=== PATIENT | male | born 1980 ===

== ENCOUNTER 2017-05-01 21:31 | Inpatient (IN) ==
[2017-05-01] MEDS ORDERED: metroNIDAZOLE INJ 500 MG in PREMIX 1 EACH IV STA (23:27)
[2017-05-01] MEDS ORDERED: SODIUM CHLORIDE 0.9% 1,000 ML IV STA (23:27)
[2017-05-01] MEDS ORDERED: PANTOPRAZOLE 40 MG VIAL IV STA (23:27)
[2017-05-01] MEDS ORDERED: VANCOMYCIN INJ 1,000 MG in SODIUM CHLORIDE 0.9% 250 ML IV STA (23:27)
[2017-05-01] MEDS ORDERED: ONDANSETRON 4 MG/2 ML VIAL IV STA (23:27)
[2017-05-01] MEDS ORDERED: HYDROmorphone 2 MG/1 ML VIAL IV STA (23:27)
[2017-05-01 23:35] LABS: Basophils # 0.1 10*3/uL (0.0-0.2); Basophils % 0.3 % (0.0-0.8); Hematocrit 40.8 VOL% (42.0-52.0); Hemoglobin 14.2 GM/DL (14.0-18.0); Immature Granulocytes % 0.5 %; Immature Granulocytes Absolute 0.12 #; Lymphocytes # 3.4 10*3/uL (1.4-4.0); Lymphocytes % 15.4 % (21.2-54.2); Mean Corpuscular HGB Conc 34.8 GM/DL (32-36); Mean Corpuscular Hemoglobin 30 PG (27-34); Mean Corpuscular Volume 85.4 FL (87-102); Mean Platelet Volume 11.1 FL (9.6-12.0); Monocytes # 1.9 10*3/uL (0.11-0.8); Monocytes % 8.7 % (1.7-12.7); Neutrophils # 16.6 10*3/uL (1.4-7.4); Neutrophils % 75.1 % (38.7-73.9); Platelet Count 292 T/CUMM (130-400); Red Blood Count 4.78 MC/CUMM (3.8-5.5); Red Cell Distribution Width 12.8 % (9.3-17.3); White Blood Count 22.1 T/CUMM (4-12)
[2017-05-01] MEDS ORDERED: methylPREDNISolone SOD SUC 125 MG/2 ML VIAL IV STA (23:36)
--- NOTE | 2017-05-01 23:49 | Emergency Department Note ---
Jarrett Peck Rolonda, am scribing for, and in the presence of, Kenneth Woods MD 23:34. Chuck Peck Charles R, MD, personally performed the services described in this documentation, ascribed by Vincent Farias in my presence, and it is both accurate and complete 349 . Arrival - Arrival Chief Complaint: GI Bleed/Rectal Stated Complaint: bad cramps ED Nursing Triage Note: C/O possible abscess or ulcer to rectum since last Friday/ after doing colon prep for c-scope. Pt reports that he has had some rectal bleeding too, but mostly just discharge. Pt reports using hemorrhoid cream without any relief. Mode of Arrival: Ambulatory Limitations: No Limitations Source: Patient, Old Records Reviewed, RN Notes Reviewed Time Seen by Provider: 05/01/17 22:55 - History of Present Illness HPI Narrative: Pt is a 36 y/o male who presents to the ED with c/o rectal bleeding with an onset of x1 week. Pt has PMHx of Crohn's disease. He states that he was a colonoscopy scheduled last week by Dr. Piper at [place] but did not have the procedure done due to because of the rectal pain. He states that he has been straining during BM and that he has hematochezia. He denied PMHx of hemorrhoids but confirms fever. Pt had a fever of 100.1 during time of triage. No other complaint/pain in ED. Onset (ago): week(s) Consistency: constant Severity: mild, moderate Severity scale (1-10): 5 Allergies/Adverse Reactions: Allergies Allergy/AdvReac Type Severity Reaction Status Date / Time Penicillins Allergy Intermediate RASH Verified 05/01/17 21:42 Review of System - Review of System 12 point system: reviewed and no additional remarkable complaints except as stated - Review of System Constitutional: Present: fever. Absent: chills Eyes: Absent: discharge Head/Ears/Nose/Throat: Absent: earache Respiratory: Absent: cough Cardiovascular: Absent: chest pain Gastrointestinal: Present: hematochezia. Absent: abdominal pain Genitourinary male: Present: other (rectal pain). Absent: dysuria Musculoskeletal: Absent: arm pain Skin: Absent: rash Neurological: Absent: headache Psychiatric: Absent: anxiety Endocrine: Absent: cold intolerance Hematological/Lymphatic: Absent: easy bleeding Allergic/Immunologic: Absent: facial swelling Medical,Surgical,& Family Hx - Medical History Gastrointestinal: History of: Crohn's Disease - Social History Smoking Status: Never smoker Frequency of Alcohol Use: None Type of Drug Use: None Exam Vital Signs: Vital Signs Temperature 100.1 F H 05/01/17 21:43 Pulse Rate 118 H 05/01/17 21:43 Respiratory Rate 18 05/01/17 21:43 Blood Pressure 137/93 05/01/17 21:43 O2 Sat by Pulse Oximetry 96 05/01/17 21:43 - General General appearance: alert, in no apparent distress - Head Head exam: Present: atraumatic, normocephalic - Eye Eye exam: Present: PERRL, EOMI - ENT ENT exam: Present: mucous membranes moist. Absent: mucous membranes dry - Neck Neck exam: Present: full ROM. Absent: tenderness - Chest Chest inspection: Present: symmetric chest wall rise. Absent: tenderness - Respiratory Respiratory exam: Present: normal lung sounds bilaterally. Absent: wheezes - Cardiovascular Cardiovascular exam: Present: normal rhythm, tachycardia - Abdominal Exam Abdominal exam: Present: soft, normal bowel sounds. Absent: tenderness - Rectal Exam Rectal exam: Present: heme (-) stool, hemorrhoids, other (perirectal pain). Absent: normal inspection - Extremities Exam Extremities exam: Present: full ROM. Absent: tenderness - Back Exam Back exam: Present: full ROM. Absent: tenderness - Neurological Exam Neurological exam: Present: alert, oriented X3, CN II-XII intact - Psychiatric Psychiatric exam: Present: normal affect, normal mood - Skin Skin exam: Present: warm, dry, intact, normal color. Absent: rash Course - Consultations Consultation #1: Spoke to Dr. Leung. He said to admit patient to medicine consult GI no need for any intervention because of Crohn's flareup possibility of perforated inflamed tissue in the rectum consult as needed. Time: 00:20 Consultation #2: Hospitalist will admit patient Time: 00:20 Results - Labs CBC & BMP: 05/01/17 23:05 05/01/17 23:05 Lab Results: I have reviewed the patients labs Labs: Laboratory Tests 05/01/17 23:05 WBC 22.1 H RBC 4.78 Hgb 14.2 Hct 40.8 L MCV 85.4 L Neut % (Auto) 75.1 H Lymph % (Auto) 15.4 L Neut # (Auto) 16.6 H Jessamine # (Auto) 1.9 H Laboratory Tests 05/01/17 23:05 Platelet Estimate Normal Anisocytosis Laboratory Tests 05/01/17 23:05 Sodium 132 L Potassium 4.0 Chloride 98 Carbon Dioxide 26 BUN 10 GFR Calculation 125 Glucose 93 Calculated Osmolality 262.5 L Alkaline Phosphatase 134 H Albumin 3.2 L Globulin 3.8 H Albumin/Globulin Ratio 0.8 L Amylase 14 L Disposition Clinical Impression: Hemorrhoids, Crohn's disease flareup, Fever, Leukocytosis, Rectal pain, Proctitis, Early perirectal abscess Case discussed with: patient Disposition: Still a Patient Condition: Stable Time of Disposition: 00:22
[2017-05-01] MEDS ORDERED: VANCOMYCIN 1,000 MG VIAL ONE (23:52)
[2017-05-01] MEDS ORDERED: PANTOPRAZOLE 40 MG VIAL IV ONE (23:52)
[2017-05-01] MEDS ORDERED: HYDROmorphone 2 MG/1 ML VIAL ONE (23:53)
[2017-05-01] MEDS ORDERED: ONDANSETRON 4 MG/2 ML VIAL ONE (23:53)
[2017-05-01] MEDS ORDERED: methylPREDNISolone SOD SUC 125 MG/2 ML VIAL ONE (23:53)
[2017-05-01] MEDS ORDERED: metroNIDAZOLE 500 MG/100 ML PREMIX IV ONE (23:53)
--- NOTE | 2017-05-01 23:57 | DUMMY REPORT TO COMPLETE ORDER ---
See report scanned to EMR
[2017-05-01 23:58] LABS: Platelet Estimate Normal
[2017-05-02 00:09] LABS: Albumin 3.2 G/DL (3.4-5.0); Bilirubin,Total 0.6 MG/DL (0.2-1.0); Calcium 8.8 MG/DL (8.5-10.1); Lactic Acid 0.7 MMOL/L (0.4-2.0); Magnesium 1.8 MG/DL (1.8-2.4); Osmolality,Calculated 262.5 MOS/KG (273-304)
[2017-05-02] MEDS ORDERED: ACETAMINOPHEN 500 MG TABLET PO STA (00:26)
[2017-05-02] MEDS ORDERED: PRAMOXINE/HYDROCORTISONE RECTAL FOAM 10 GM CAN RECTAL STA (00:27)
[2017-05-02] MEDS ORDERED: ACETAMINOPHEN 500 MG TABLET ONE (00:59)
--- NOTE | 2017-05-02 01:13 | Hospitalist History & Physical ---
History of Present Illness Chief complaint: rectal pain and fevers History of present illness: Mr. Lieberman is a 36 year old PMH of Crohn's disease, anxiety, and HTN who presents with 7 days of rectal pain, increasing episodes of bloody diarrhea, fevers, and chills. He states that these symptoms started after his colo prep. He is new to the area and has been seeing Dr. Piper of GI. He saw Dr. Piper on and the plan was for a colonoscopy on 04/25. Unfortunately, this was cancelled because of intractable rectal pain. He describes the pain has being constant and sharp. Pain is worst while having bowel movements. He has a history of Crohn's disease and is on humira. He states that the humira controls his symptoms. He has unchanged and chronic lower abdominal pain. He denies any n/v/recent antibiotics. A rectal exam was done by ER physician who noted hemorrhoids and no fluctuant mass. Stool occult was negative. Allergies Allergy/AdvReac Type Severity Reaction Status Date / Time Penicillins Allergy Intermediate RASH Verified 05/01/17 21:42 Medical,Surgical,& Family Hx - Medical History Cardio: History of: Hypertension Psychological: History of: Anxiety Disorders Gastrointestinal: History of: Crohn's Disease - Social History Smoking Status: Current every day smoker (smokes 3ppd x 12 years, now cut down to 3 cigs a day) Frequency of Alcohol Use: None Type of Drug Use: None - Constitutional Constitutional: Present: chills, fever(s). Absent: weight loss - EENT Nose, mouth and throat: Absent: dysphagia, sore throat - Cardiovascular Cardiovascular: Absent: chest pain at rest, chest pain with activity, lightheadedness, palpitations - Respiratory Respiratory: Absent: cough, dyspnea on exertion - Gastrointestinal Gastrointestinal: Present: abdominal pain, hematochezia, loose stools. Absent: melena, nausea, vomiting - Genitourinary Genitourinary: Absent: hematuria - Psychiatric Psychiatric: Present: anxiety Exam - Constitutional Vitals: Period Temp Pulse Resp BP Sys/Panda Pulse Ox Last 24 Hr 100.1 F 118 18 137/93 96 General appearance: normal weight, mild distress, over weight - Head Head exam: Present: normal inspection, normocephalic - Eye Eye exam: Absent: conjunctival injection, scleral icterus Pupils: Present: VALENTE - Respiratory Respiratory exam: Present: clear to auscultation bilaterally. Absent: rales, rhonchi, wheezes - Cardiovascular Cardiovascular exam: Present: regular rate and rhythm, tachycardia (regular rhythm). Absent: systolic murmur - GI/Abdominal GI/Abdominal exam: Present: normal bowel sounds, tenderness, soft, other ( rectal exam deferred since ER staff had done one; perirectal area noted for erythema). Absent: guarding, rebound - Extremities Exam Extremities exam: Absent: edema - Neurological Exam Neurological exam: Present: alert, oriented X3 - Psychiatric Psychiatric exam: Present: normal affect, normal mood - Skin Skin exam: Present: normal color, warm Results - Labs CBC & BMP: 05/01/17 23:05 05/01/17 23:05 - EKG EKG results: sinus rhythm - Impressions Patient is a 36 yo male with a history of Crohn's disease who presents here with fevers, bloody stools, and rectal pain. Active Issues: 1. Crohn's disease with acute exacerbation, suspect proctitis 2. Sepsis, likely 2nd to colitis 3. Tobacco use, counselled on ill health effects of smoking and encouraged smoking cessation. He states that he is nearly quit and will quit on his own. Counselling time: 10 minutes 4. Comorbid conditions: history of anxiety, HTN Plan: admit; await results of cultures/IVFs/cipro, flagyl/parenteral steroids and 5-asa suppository/PPI/pain control/CTAP/monitor wbc; control fevers/consult GI. Unable to reconcile medications. Will do some when information becomes available. PPI/DVT prophalaxis (SCDs) The plan of care may be modified as more information becomes available. CODE: FULL - Diagnostic Findings Procedure: Chest x-ray: image reviewed by me (no acute findings)
[2017-05-02] MEDS ORDERED: ACETAMINOPHEN 325 MG TABLET PO PRN (01:32)
[2017-05-02] MEDS ORDERED: MESALAMINE 1000 MG SUPP RECTAL STA (01:37)
[2017-05-02 02:02] LABS: Apearance,Urine CLEAR (Clear); Bilirubin,Urine Negative (Negative); Blood, Urine Small mg/dL (Negative); Glucose,Urine (UA) Negative (Negative); Ketones,Urine Negative (Negative); Mucus,Urine Occasional /LPF (Occasional); Nitrite,Urine Negative (Negative); Protein,Urine Negative; RBC,Urine <1 /HPF (0-4); Urine Color Yellow (Yellow); Urine Specific Gravity 1.004 (1.001-1.035); Urine Urobilinogen < 2.0 EU/DL (0.2-1.0)
[2017-05-02] MEDS: SODIUM CHLORIDE 0.9% 1,000 ML IV SCH ×2 (02:33→16:21)
[2017-05-02] MEDS: CIPROFLOXACIN INJ 400 MG in PREMIX 1 EACH IV SCH ×2 (04:56→15:55)
[2017-05-02 05:07] LABS: Basophils % 0.2 % (0.0-0.8); Hematocrit 41.4 VOL% (42.0-52.0); Hemoglobin 13.8 GM/DL (14.0-18.0); Immature Granulocytes % 0.8 %; Immature Granulocytes Absolute 0.13 #; Lymphocytes # 1.1 10*3/uL (1.4-4.0); Lymphocytes % 6.4 % (21.2-54.2); Mean Corpuscular HGB Conc 33.3 GM/DL (32-36); Mean Corpuscular Hemoglobin 29 PG (27-34); Mean Corpuscular Volume 87.9 FL (87-102); Mean Platelet Volume 10.9 FL (9.6-12.0); Monocytes # 0.3 10*3/uL (0.11-0.8); Monocytes % 1.8 % (1.7-12.7); Neutrophils % 90.8 % (38.7-73.9); Platelet Count 296 T/CUMM (130-400); Red Blood Count 4.71 MC/CUMM (3.8-5.5); Red Cell Distribution Width 12.9 % (9.3-17.3); White Blood Count 16.5 T/CUMM (4-12)
[2017-05-02 05:46] LABS: Calcium 8.6 MG/DL (8.5-10.1); Magnesium 2.1 MG/DL (1.8-2.4); Osmolality,Calculated 270.1 MOS/KG (273-304); Potassium 4.5 MMOL/L (3.5-5.1)
[2017-05-02 06:02] LABS: Band Neutrophils 1 % (0-10); Giant Platelets Few; Hypochromasia 1+; Lymphocytes 6 % (20-55); Microcytosis Slight; Platelet Estimate Adequate; Segmented Neutrophils 91 % (50-85); Total Cells Counted 100
--- NOTE | 2017-05-02 08:01 | CT Report ---
CT abdomen pelvis w con Indication: Rectal pain, history of Crohn's, rule out abscess Comparison: None Technique: Multiple axial tomographic images of the abdomen and pelvis were obtained after the administration of 100 cc Omnipaque 350 intravenous contrast. Findings: Lung bases clear. No worrisome focal hepatic abnormality. The gallbladder is grossly unremarkable. The pancreas is grossly unremarkable. The spleen is grossly unremarkable. The bilateral adrenal glands are grossly unremarkable. The bilateral kidneys are grossly unremarkable. The urinary bladder is incompletely distended. The prostate and seminal vesicles are grossly unremarkable. Mild rectal wall thickening with surrounding stranding suggesting proctitis. There is a 1.5 x 2 cm air/fluid collection near the dorsal aspect of the junction of the distal rectum/anus suspicious for perirectal abscess. Several mildly prominent perirectal lymph nodes are demonstrated measuring up to 8 mm in short axis dimension. There is no evidence of gastrointestinal obstruction or acute appendicitis. Visualized vasculature grossly unremarkable. Visualized osseous and surrounding soft tissue structures demonstrate no acute abnormality. IMPRESSION: Mild rectal wall thickening with surrounding stranding suggesting proctitis. There is a 1.5 x 2 cm air/fluid collection near the dorsal aspect of the junction of the distal rectum/anus suspicious for perirectal abscess. Several mildly prominent perirectal lymph nodes are demonstrated measuring up to 8 mm in short axis dimension. Recommend follow-up to exclude malignancy. Preliminary report was issued by [facility]. The CT exam was performed using one or more of the following dose reduction techniques: Automated exposure control, adjustment of the mA and/or kV according to patient size, or use of iterative reconstruction technique. PROCEDURE INTERPRETED AT [facility] Final Report Signed by: Dr Demarco Sewell
[2017-05-02] MEDS: methylPREDNISolone SOD SUC 125 MG/2 ML VIAL IV SCH ×2 (08:08→17:07)
[2017-05-02] MEDS: PANTOPRAZOLE 40 MG VIAL IV SCH (08:11)
[2017-05-02] MEDS: metroNIDAZOLE INJ 500 MG in PREMIX 1 EACH IV SCH ×2 (08:14→17:10)
--- NOTE | 2017-05-02 08:23 | XRay Report ---
History: Abdominal pain Date: 05/01/2017 Study: Flat and erect abdomen Comparison exam: No previous similar abdominal x-ray available There is no evidence of pneumoperitoneum. There are some small nonspecific air-fluid levels in large and small bowel on the upright view, without evidence of raymond mechanical bowel obstruction. No radiopaque calculi are present. There is no acute osseous abnormality. Impression: Occasional small scattered nonspecific air-fluid levels without raymond obstruction or gross mass lesion. No acute process otherwise PROCEDURE INTERPRETED AT [facility] DEPARTMENT OF RADIOLOGY Final Report Signed by: Dr. Mikayla Wade
--- NOTE | 2017-05-02 08:29 | XRay Report ---
History: Abdominal pain Date: 05/01/2017 Study: Chest x-ray AP portable Comparison exam: No previous The cardiomediastinal silhouette and pulmonary vasculature are unremarkable. The lungs and pleural spaces are clear. The osseous structures are unremarkable. Impression: No acute cardiopulmonary process PROCEDURE INTERPRETED AT [facility] DEPARTMENT OF RADIOLOGY Final Report Signed by: Dr. Mikayla Wade
--- NOTE | 2017-05-02 09:29 | Gastrointestinal Consult Note ---
<Danielle Starkey Chrystal - Last Filed: 05/02/17 09:24> Assessment and Plan (1) Rectal pain Status: Acute Assessment and plan: 05/02-1 week history of rectal pain with 4-5 loose watery stools daily. Associated fever, chills or nausea. History of Crohn's disease diagnosed in April. Currently on Humira and prednisone. CT findings noted as below. Requesting records from [place] for prior colonoscopies. Continue IV Cipro/ Flagyl. Plan an addendum to followed by Dr. Douglass. Current Visit: Yes History of Present Illness Chief complaint: Rectal pain, fever History of present illness: Mr. Lieberman is a 36 year old male who was admitted to the hospital last night with 1 week history of rectal pain, diarrhea, fever and chills. Patient is a good historian therefore information obtained from patient interview. Patient states that he was diagnosed in April of this past year, in [place], with Crohn's disease. He states at that time he was having some severe abdominal pain and bowel changes and underwent a colonoscopy with his findings. He was placed on Humira as well as prednisone at that time and states since that initial diagnosis he is symptoms have been fairly well controlled. He had a repeat colonoscopy in July in [place] and states everything looked well at that time. He recently moved to this area 2 months ago and was referred to Dr. Piper at [place] to become established as a patient. He was to have a surveillance colonoscopy done last week however he states after completing the prep, he was unable to proceed with colonoscopy last Friday due to increased rectal pain. Patient states since starting the prep week ago, he has had changes in his bowel habits with loose watery stools up to 4 a day without nocturnal defecation or incontinence. He denies any rectal bleeding associated with this. He is also complaining of some lower abdominal pain that is sharp and cramping and states this feels like his initial onset of his Crohn's April. He has been on prednisone off and on since diagnosis when he would have some mild abdominal pain. He denies any weight loss and states he has actually gained weight since diagnosis. Over the last week, he has been running a low-grade fever up to 100 with chills and night sweats. On admission , patient was noted to have WBCs at 22,000. He was also noted to have 100.1 temperature. Rectal exam in the emergency room was noted to show hemorrhoids however negative stools for occult blood. He was also noted to have an elevated CRP at 2.5. CT of abdomen with IV contrast was noted to show rectal wall thickening with 1.5 x 2 cm area/fluid collection near the distal rectum suspicious of perirectal abscess as well as prominent perirectal lymph nodes. Patient states that he has not had any complications with his Crohn's disease since diagnosis. He does state he feels significantly better today however he has received IV hydration as well as IV antibiotics. He has had very minimal to eat or drink since onset a week ago. Home Medications Medication Instructions Recorded Confirmed Type Adalimumab [Humira Pen] 40 mg SUBCUT Q7DAY 05/02/17 05/02/17 History Hydrocodone/Acetaminophen 1 tablet PO BID 05/02/17 05/02/17 History [Hydrocodon-Acetaminoph 7.5-325] Lisinopril [Lisinopril] 10 mg PO BID 05/02/17 05/02/17 History PARoxetine [Paxil] 10 mg PO DAILY 05/02/17 05/02/17 History diazePAM [Diazepam] 5 mg PO BEDTIME PRN 05/02/17 05/02/17 History predniSONE TAB [PredniSONE] 5 mg PO DAILY 05/02/17 05/02/17 History Allergies Allergy/AdvReac Type Severity Reaction Status Date / Time Penicillins Allergy Intermediate RASH Verified 05/01/17 21:42 Medical,Surgical,& Family Hx - Medical History Cardio: History of: Hypertension Psychological: History of: Anxiety Disorders Gastrointestinal: History of: Crohn's Disease - Social History Smoking Status: Current every day smoker Frequency of Alcohol Use: None Type of Drug Use: None 12 point system: reviewed and no additional remarkable complaints except as stated - Constitutional Constitutional: Present: as per HPI, chills, fever(s), weight gain - EENT Eyes: Present: as per HPI Ears: Present: as per HPI Nose, mouth and throat: Present: as per HPI - Cardiovascular Cardiovascular: Present: as per HPI - Respiratory Respiratory: Present: as per HPI - Gastrointestinal Gastrointestinal: Present: as per HPI, abdominal pain, cramping, diarrhea, loose stools, nausea - Genitourinary Genitourinary: Present: as per HPI - Musculoskeletal Musculoskeletal: Present: as per HPI - Neurological Neurological: Present: as per HPI - Psychiatric Psychiatric: Present: as per HPI - Endocrine Endocrine: Present: as per HPI Exam - Constitutional Vitals: Period Temp Pulse Resp BP Sys/Panda Pulse Ox Last 24 Hr 95.1 F-100.2 F 73-118 18-22 111-137/59-93 95-98 General appearance: normal weight, no acute distress - Head Head exam: Present: normal inspection, normocephalic - Eye Eye exam: Present: other (Lids and conjunctive are unremarkable). Absent: scleral icterus - ENT ENT exam: Present: normal exam, normal oropharynx - Neck Neck exam: Present: normal inspection - Respiratory Respiratory exam: Present: clear to auscultation bilaterally. Absent: rales, rhonchi, wheezes - Cardiovascular Cardiovascular exam: Present: regular rate and rhythm. Absent: diastolic murmur , JVD, systolic murmur - GI/Abdominal GI/Abdominal exam: Present: normal bowel sounds, tenderness (Lower abdominal), soft. Absent: ascites, distended, mass, organomegaly - Extremities Exam Extremities exam: Present: normal inspection, full ROM - Back Exam Back exam: Present: normal inspection - Neurological Exam Neurological exam: Present: alert, oriented X3 - Psychiatric Psychiatric exam: Present: normal affect, normal mood - Skin Skin exam: Present: normal color, warm, dry Results - Labs CBC & BMP: 05/02/17 04:54 05/02/17 04:54 Lab Results: I have reviewed the past 24 hour labs - Diagnostic Findings Procedure: CT Abdomen and Pelvis: report reviewed by me Quality Measures - VTE Contraindication to Pharmacological VTE Prophylaxis: High Risk of Bleeding <Juliano Douglass - Last Filed: 05/02/17 16:00> History of Present Illness History of present illness: Mr. Lieberman is a 36 year old male Exam - Constitutional Vitals: Period Temp Pulse Resp BP Sys/Panda Pulse Ox Last 24 Hr 95.1 F-100.2 F 73-118 18-22 110-137/59-93 92-98 Results - Labs CBC & BMP: 05/02/17 04:54 05/02/17 04:54
--- NOTE | 2017-05-02 12:00 | General Surgery Consult Note ---
Assessment and Plan (1) Proctitis Status: Acute Assessment and plan: With small associated rectal abscess. This area is likely very difficult to reach from a surgical standpoint, and it is also a small abscess likely too small for IR access. Fortunately, it is small and the patient's symptoms are significantly improved and leukocytosis is also improving, so this may be able to resolve with antibiotics solely. May consider holding immunomodulators at this point in light of the infection, but would defer to gastroenterology ultimately for that decision. Agree with ciprofloxacin and Flagyl for antimicrobial agents. Thank you for this consultation. We will continue to follow Current Visit: Yes History of Present Illness Chief complaint: rectal pain/bleeding History of present illness: Mr. Lieberman is a 36 year old male with past medical history of Crohn's disease, hypertension, and anxiety currently admitted with rectal pain and bleeding with concern for a rectal abscess. The patient was diagnosed with Crohn's disease April 2016 with symptoms dating back to August 2015 is currently on Humira biweekly injections and as needed prednisone 5 mg therapy with reasonable symptom control; last colonoscopy July 2016. He continues to smoke cigarettes, but he has decreased his use significantly and has no alcohol use. He is currently admitted after 1 week history of worsening rectal pain and pelvic pressure associated with rectal bleeding and low-grade temperature T-max 100.1. He is currently being treated with ciprofloxacin and Flagyl for proctitis and focal abscess identified by CT scan after which reports a significant improvement in his abdominal pain and rectal pain. Home Medications Medication Instructions Recorded Confirmed Type Adalimumab [Humira Pen] 40 mg SUBCUT Q7DAY 05/02/17 05/02/17 History Hydrocodone/Acetaminophen 1 tablet PO BID 05/02/17 05/02/17 History [Hydrocodon-Acetaminoph 7.5-325] Lisinopril [Lisinopril] 10 mg PO BID 05/02/17 05/02/17 History PARoxetine [Paxil] 10 mg PO DAILY 05/02/17 05/02/17 History diazePAM [Diazepam] 5 mg PO BEDTIME PRN 05/02/17 05/02/17 History predniSONE TAB [PredniSONE] 5 mg PO DAILY 05/02/17 05/02/17 History Allergies Allergy/AdvReac Type Severity Reaction Status Date / Time Penicillins Allergy Intermediate RASH Verified 05/01/17 21:42 Medical,Surgical,& Family Hx - Medical History Cardio: History of: Hypertension Psychological: History of: Anxiety Disorders Gastrointestinal: History of: Crohn's Disease - Surgical History Abdominal Surgeries: Surgical HX of: Colonoscopy - Family History Family History: Reports;: Additional Family History Additional Family History: Positive for father with Crohn's disease - Social History Smoking Status: Current every day smoker Frequency of Alcohol Use: None Type of Drug Use: None - Constitutional Constitutional: Present: as per HPI - Gastrointestinal Gastrointestinal: Present: as per HPI, other (Positive tenesmus). Absent: diarrhea, nausea, vomiting Exam - Constitutional Vitals: Period Temp Pulse Resp BP Sys/Panda Pulse Ox Last 24 Hr 95.1 F-100.2 F 73-118 18-22 111-137/59-93 95-98 General appearance: no acute distress - Head Head exam: Present: normocephalic - Eye Eye exam: Absent: scleral icterus - Respiratory Respiratory exam: Present: clear to auscultation bilaterally - Cardiovascular Cardiovascular exam: Present: RRR - GI/Abdominal GI/Abdominal exam: Present: normal bowel sounds, tenderness (Diffuse, mild), soft. Absent: distended, guarding - Neurological Exam Neurological exam: Present: alert, oriented X3 Speech: Present: normal - Skin Skin exam: Present: normal color Quality Measures - VTE Contraindication to Pharmacological VTE Prophylaxis: High Risk of Bleeding Results - Labs CBC & BMP: 05/02/17 04:54 05/02/17 04:54 Lab Results: I have reviewed the past 24 hour labs Labs: Leukocytosis noted to decrease from 22 upon arrival; H&H stable 3: Hyponatremia improving Lactic acid 0.7 Lipase 81 LFTs unremarkable except alkaline phosphatase slightly elevated 134 CRP 2.50 - Diagnostic Findings Procedure: CT Abdomen and Pelvis: image reviewed by me, report reviewed by me ( Inability reviewed; there is a small abscess noted at the cephalad end of the rectum)
[2017-05-02 13:32] LABS: HIV Antigen/Antibody Result Nonreactive (Nonreactive)
[2017-05-03] MEDS: methylPREDNISolone SOD SUC 125 MG/2 ML VIAL IV SCH ×2 (00:11→08:52)
[2017-05-03] MEDS: ONDANSETRON 4 MG/2 ML VIAL IV PRN ×2 (00:14→03:51)
[2017-05-03] MEDS: HYDROmorphone 2 MG/1 ML VIAL IV PRN ×4 (00:18→11:53)
[2017-05-03] MEDS: metroNIDAZOLE INJ 500 MG in PREMIX 1 EACH IV SCH ×2 (00:19→08:44)
[2017-05-03] MEDS: CIPROFLOXACIN INJ 400 MG in PREMIX 1 EACH IV SCH (03:44)
[2017-05-03 05:27] LABS: Basophils # 0.1 10*3/uL (0.0-0.2); Basophils % 0.2 % (0.0-0.8); Hematocrit 38.6 VOL% (42.0-52.0); Hemoglobin 12.9 GM/DL (14.0-18.0); Immature Granulocytes % 1.4 %; Immature Granulocytes Absolute 0.39 #; Lymphocytes # 1.5 10*3/uL (1.4-4.0); Lymphocytes % 5.4 % (21.2-54.2); Mean Corpuscular HGB Conc 33.4 GM/DL (32-36); Mean Corpuscular Hemoglobin 30 PG (27-34); Mean Corpuscular Volume 88.3 FL (87-102); Mean Platelet Volume 11.5 FL (9.6-12.0); Monocytes # 0.7 10*3/uL (0.11-0.8); Monocytes % 2.4 % (1.7-12.7); Neutrophils # 25.6 10*3/uL (1.4-7.4); Neutrophils % 90.6 % (38.7-73.9); Platelet Count 322 T/CUMM (130-400); Red Blood Count 4.37 MC/CUMM (3.8-5.5); Red Cell Distribution Width 13.1 % (9.3-17.3); White Blood Count 28.2 T/CUMM (4-12)
[2017-05-03 05:54] LABS: Calcium 9.1 MG/DL (8.5-10.1); Osmolality,Calculated 280.8 MOS/KG (273-304); Potassium 4.3 MMOL/L (3.5-5.1)
[2017-05-03 06:38] LABS: Band Neutrophils 3 % (0-10); Hypochromasia 2+; Lymphocytes 3 % (20-55); Platelet Estimate Normal; Segmented Neutrophils 92 % (50-85); Total Cells Counted 100
[2017-05-03] MEDS: PANTOPRAZOLE 40 MG VIAL IV SCH (08:50)
--- NOTE | 2017-05-03 10:38 | General Surgery Progress Note ---
Assessment and Plan (1) Perirectal abscess Status: Acute Assessment and plan: This patient has a perirectal abscess but appears to be doing much better today. He is afebrile now. His white blood cell count did go up to 28,000 but he is on high-dose steroids and that could be part of this. I would recommend continuing IV antibiotics and monitoring him for now. If his white blood cell count does not start to improve over the next couple days he will need a repeat CT scan to reevaluate this area. This is probably too high to be accessed transanally for drainage but we could certainly attempt this if it comes to a size where he would need to have it drained but based on the initial CT I am hopeful that antibiotics alone will clear this up. I would not send the patient home and I would recommend stopping his steroids since we are treating an abscess and not a Crohn's flareup right now. Current Visit: Yes Subjective Patient reports: Present: no new complaints, feels better, pain is less, afebrile Exam - Constitutional Vitals: Period Temp Pulse Resp BP Sys/Panda Pulse Ox Last 24 Hr 96.4 F-98.1 F 86-110 18-21 105-137/54-85 91-95 General appearance: no acute distress, over weight - Head Head exam: Present: normal inspection, normocephalic - Eye Eye exam: Present: EOMI Pupils: Present: VALENTE - ENT ENT exam: Present: normal exam Mouth exam: Present: normal external inspection, normal voice - Neck Neck exam: Present: normal inspection, trachea midline - Respiratory Respiratory exam: Present: clear to auscultation bilaterally. Absent: accessory muscle use, chest wall tenderness - Cardiovascular Cardiovascular exam: Present: RRR. Absent: systolic murmur, tachycardia - GI/Abdominal GI/Abdominal exam: Present: normal bowel sounds, soft. Absent: tenderness, rebound - Extremities Exam Extremities exam: Present: normal inspection, normal capillary refill - Back Exam Back exam: Present: normal inspection - Neurological Exam Neurological exam: Present: alert, oriented X3 Speech: Present: normal - Skin Skin exam: Present: normal color, warm Results - Labs CBC & BMP: 05/03/17 04:57 05/03/17 04:57 Quality Measures - VTE Contraindication to Pharmacological VTE Prophylaxis: High Risk of Bleeding
[2017-05-03] MEDS ORDERED: methylPREDNISolone SOD SUC 40 MG/1 ML VIAL IV SCH (11:04)
[2017-05-03] MEDS ORDERED: DIAZEPAM 5 MG TABLET PO PRN (11:24)
[2017-05-03] MEDS ORDERED: LISINOPRIL 10 MG TABLET PO SCH (11:30)
[2017-05-03] MEDS ORDERED: PARoxetine 10 MG TABLET PO SCH (11:30)
[2017-05-03 12:22] VITALS: BP 144/86
--- NOTE | 2017-05-03 13:33 | Discharge Summary ---
Hospital Course - Hospital Course Hospital Course: 36-year-old white male with history of Crohn's disease, anxiety, and hypertension admitted by the hospitalist service on 05/02/2017 with a 7 day history of rectal pain and increasing episodes of bloody diarrhea, fevers, and chills. Dr. Douglass from GI was consulted and the CT scan showed an abscess. Dr. Ang from surgery was consulted and he recommended stopping all immunomodulation and steroids given that the patient's current symptom complex is from his abscess. Any attempt to decrease his immune response will affect his ability to clear the abscess and heel. Patient responded well to antibiotics overnight and he was feeling much better. He was afebrile but his white count did go up to 28,000. Dr. Ang was unsure if this was due to the abscess or to the steroids. Patient wanted to go AMA and it was explained to him that it was unsafe to do so with his elevated white count. He was given no prescriptions and instructed to return to the ER if he had further problems. This was discussed with Dr. Ang and Dr. Bautista. - Time spent with patient Time with patient DS: Greater than 30 minutes Discharge Plan - Discharge Data Disposition: Left Against Medical Advice - Discharge Medications Continue diazePAM [Diazepam] 5 mg PO BEDTIME PRN PRN Reason: Sleep predniSONE TAB [PredniSONE] 5 mg PO DAILY PARoxetine [Paxil] 10 mg PO DAILY Lisinopril 10 mg PO BID Hydrocodone/Acetaminophen [Hydrocodon-Acetaminoph 7.5-325] 1 tablet PO BID Adalimumab [Humira Pen] 40 mg SUBCUT Q7DAY - Follow Up or Referral - Forms/Instructions Exam - Constitutional Vitals: Period Temp Pulse Resp BP Sys/Panda Pulse Ox Last 24 Hr 97.3 F-98.5 F 75-110 18-21 105-144/54-86 91-95 Discharge Results Procedures and tests throughout hospitalization: Pending Orders 05/01/17 23:25 Blood Culture Stat 05/02/17 09:55 Occult Blood, Stool Routine Labs on day of discharge: Labs from last 24 hours 05/03/17 05/03/17 05/03/17 04:57 04:57 04:57 WBC 28.2 H D RBC 4.37 Hgb 12.9 L Hct 38.6 L MCV 88.3 MCH 30 MCHC 33.4 RDW 13.1 Plt Count 322 MPV 11.5 Neut % (Auto) 90.6 H Lymph % (Auto) 5.4 L [place] % (Auto) 2.4 Eos % (Auto) 0.0 Baso % (Auto) 0.2 Neut # (Auto) 25.6 H Lymph # (Auto) 1.5 [place] # (Auto) 0.7 Eos # (Auto) 0.0 Baso # (Auto) 0.1 Total Counted 100 Immature Gran % 1.4 Nucleated RBC % 0.0 Immature Gran # 0.39 Segmented Neutrophils 92 H Band Neutrophils 3 Lymphocytes 3 L Monocytes 2 Nucleated RBCs # 0.00 Platelet Estimate Normal Immature Plt Fraction 0.0 Hypochromasia 2+ Sodium 137 Potassium 4.3 Chloride 101 Carbon Dioxide 28 Anion Gap 12.3 BUN 16 Creatinine 0.90 GFR Calculation 129 BUN/Creatinine Ratio 17.00 Glucose 227 H Hemoglobin A1c 5.7 Calculated Osmolality 280.8 Calcium 9.1 HIV 1&2 Antigen & Ab 05/02/17 04:52 WBC RBC Hgb Hct MCV MCH MCHC RDW Plt Count MPV Neut % (Auto) Lymph % (Auto) [place] % (Auto) Eos % (Auto) Baso % (Auto) Neut # (Auto) Lymph # (Auto) [place] # (Auto) Eos # (Auto) Baso # (Auto) Total Counted Immature Gran % Nucleated RBC % Immature Gran # Segmented Neutrophils Band Neutrophils Lymphocytes Monocytes Nucleated RBCs # Platelet Estimate Immature Plt Fraction Hypochromasia Sodium Potassium Chloride Carbon Dioxide Anion Gap BUN Creatinine GFR Calculation BUN/Creatinine Ratio Glucose Hemoglobin A1c Calculated Osmolality Calcium HIV 1&2 Antigen & Ab Nonreactive Preliminary micro results at discharge 05/01/17 23:25 Blood Culture - Preliminary Blood No growth at 1 day 05/01/17 23:18 Blood Culture - Preliminary Blood No growth at 1 day DS: Provider Date of admission: 05/02/17 01:49 Primary care physician: . No PCP Attending physician on admission: Jennifer Bautista MD Consults: 05/02/17 01:32 Consult to Physician [CONS] Routine Comment: acute exacerbation of crohn's disease Consulting Provider: Juliano Douglass When should Consulting Provider be notified: In am 05/02/17 11:19 Consult to Physician [CONS] Routine Comment: perirectal abscess Consulting Provider: Moe Ang Person Notified: [email or web address] Date Notified: 05/02/17 Time Notified: 11:54 Discharging clinician: ADAN Moreau Expected date of discharge: 05/03/17
--- NOTE | 2017-05-03 13:44 | Event Note ---
I had reviewed this patient's record and was on the way to talk with him when informed that he had chosen to leave the hospital against medical advice. I will make Dr. Douglass aware of same on his return, Friday.
== END 2017-05-03 12:45 | disposition left against medical advice (07) | DRG 872 ==
LOC: N.ED 21:31 → N.2E 05-02 01:49
PROVIDERS: ADMIT Internal Medicine; ATTEND Internal Medicine